=== PATIENT | female | born 1970 | race Two or more races ===

== ENCOUNTER 2016-07-19 10:36 | Outpatient (POV) | END 2016-07-19 10:37 | disposition home or self-care (01) | LOC: LAB 10:36 | PROVIDERS: ATTEND General Practice | DX: Z79.899 Other long term (current) drug therapy (principal) ==

== ENCOUNTER 2016-07-24 11:44 | Outpatient (CLI) ==
[2016-07-24 13:27] LABS: BASOPHILS # (AUTO) 0.1 K/uL (0-0.2); BASOPHILS % (AUTO) 0.8 % (0.0-3.0); EOSINOPHILS # (AUTO) 0.1 K/ul (0.0-0.7); EOSINOPHILS % (AUTO) 1.8 % (0.0-7.0); HEMATOCRIT 40.4 % (37.0-47.0); HEMOGLOBIN 14.3 g/dl (12.0-16.0); IMMATURE GRANULOCYTE % (AUTO) 0.3 % (0.0-5.0); LYMPHOCYTES # (AUTO) 1.6 K/uL (0.60-3.4); LYMPHOCYTES % (AUTO) 22.1 (10.0-50.0); MEAN CORPUSCULAR HEMOGLOBIN 29.7 pg (27.0-31.0); MEAN CORPUSCULAR HGB CONC 35.4 (31.8-35.4); MONOCYTES # (AUTO) 0.7 K/uL (0.4-2.0); NEUTROPHILS # (AUTO) 4.6 K/ul (2.0-6.9); PLATELET COUNT 226 10^3/uL (140-440); RED BLOOD COUNT 4.81 10^6/ul (4.20-5.40); WHITE BLOOD COUNT 7.09 K/ul (4.6-10.2)
[2016-07-24 13:30] LABS: ADD URINE MICROSCOPIC NO; BILIRUBIN,URINE Negative (NEGATIVE); KETONES,URINE Negative (NEGATIVE); LEUKOCYTE ESTERASE ,URINE Negative (NEGATIVE); NITRITE,URINE Negative (NEGATIVE); PROTEIN,URINE Negative (NEGATIVE); URINE, BLOOD Negative (NEGATIVE)
[2016-07-24 13:39] LABS: ALBUMIN 3.9 g/dL (3.4-5.0); ALBUMIN/GLOBULIN RATIO 1.03; ANION GAP 12.8; BILIRUBIN,TOTAL 0.57 mg/dL (0.00-1.20); BUN/CREATININE RATIO 19.73; CALCIUM 9.1 mg/dL (8.2-10.2); CHOL/HDL RATIO 4.3 (4.5-5.5); CREATININE 0.76 mg/dL (0.60-1.30); POTASSIUM 3.8 mmol/L (3.5-5.10); TOTAL PROTEIN 7.7 g/dL (6.4-8.2)
== END 2016-07-24 11:45 | disposition home or self-care (01) ==
LOC: LAB 11:44
PROVIDERS: ATTEND General Practice
DX: Z79.899 Other long term (current) drug therapy (principal)
CPT/HCPCS: 36415; 80053; 80061; 81001; 85025

== ENCOUNTER 2018-08-19 11:52 | Outpatient (CLI) | END 2018-08-19 11:53 | disposition home or self-care (01) | LOC: RHC-LAB 11:52 | PROVIDERS: ATTEND General Practice | DX: Z00.00 Encounter for general adult medical examination without abnormal findings (principal); Z79.899 Other long term (current) drug therapy; J45.909 Unspecified asthma, uncomplicated | CPT/HCPCS: 36415; 80053; 80061; 81001; 85025 ==